=== PATIENT | female | born 1940 | race African-American/Black ===

== ENCOUNTER 2017-03-04 23:00 | Inpatient (IN) | payer MEDICARE, MEDICAID ==
[~2017-03-04] VITALS: Ht 134.6 cm; Wt 44.5 kg
[~2017-03-04 23:00] MED LIST: AMI2 PO; AMLO10TA80 PO; ASPI-1159 PO; ATOR10TA PO; CALC-4 PO; CARV12.545 PO; CLOP75TA16 PO; FURO20TA4 PO; METF500T4 PO
[2017-03-05 03:06] LABS: BASOPHILS % 1.4 % (0.0-2.0); EOSINOPHILS % 2.4 % (0.0-5.0); HEMATOCRIT. 37.7 % (36.0-48.0); HEMOGLOBIN. 12.7 g/dL (12.0-16.0); LYMPHOCYTES % 36.2 % (20.0-50.0); MEAN CORPUSCULAR HEMOGLOBIN 30.5 pg (28.0-32.0); MEAN CORPUSCULAR VOLUME 90.7 fL (81.0-99.0); MEAN PLATELET VOLUME 9.8 fl (7.4-10.4); MONOCYTES % 10.1 % (2.0-8.0); NEUTROPHILS % 49.9 % (40.0-76.0); PLATELET 265 x1000/uL (130-400); RED BLOOD CELL COUNT 4.16 mill/uL (4.2-5.4); RED CELL DISTRIBUTION WIDTH 13.7 % (11.6-14.6)
[2017-03-05 03:20] LABS: CARBON DIOXIDE 24 mEq/L (21-32); CHLORIDE 110 mEq/L (98-107); CREATINE KINASE MB FRACTION 6.4 ng/mL (0.5-3.6); TROPONIN I 0.03 ng/mL (0.00-0.04)
[2017-03-05] MEDS: PANTOPRAZOLE SODIUM 40 MG/VIAL IV SCH ×2 (03:23→21:49)
[2017-03-05 04:00] VITALS: BP 145/46
[2017-03-05] MEDS ORDERED: MAGNESIUM/ALUMINUM HYDROXIDE/SIMETHICONE 30ML UDC PO PRN (06:30)
[2017-03-05] MEDS ORDERED: MORPHINE SULFATE 2 MG/ML CPJ (NOT FOR IM USE) IV PRN (06:30)
[2017-03-05 08:10] VITALS: BP 139/51
[2017-03-05] MEDS ORDERED: DEXTROSE 50% WATER 50ML SYRINGE IV PRN (08:45)
[2017-03-05] MEDS ORDERED: AMIODARONE HCL 200 MG TABLET PO SCH (09:00)
[2017-03-05] MEDS: CARVEDILOL 6.25 MG TABLET PO SCH ×2 (09:00→21:49)
[2017-03-05] MEDS ORDERED: METFORMIN HCL 500MG TABLET PO SCH (09:00)
[2017-03-05] MEDS ORDERED: FUROSEMIDE 20MG TABLET PO SCH (09:00)
[2017-03-05] MEDS ORDERED: IPRATROPIUM/ALBUTEROL 0.5-3(2.5)MG/3ML NEB HHN PRN (09:00)
[2017-03-05] MEDS ORDERED: POTASSIUM CHLORIDE INJ 20 MEQ in SODIUM CHLORIDE 0.9% 100 ML IV NR (11:00)
[2017-03-05] MEDS ORDERED: POTASSIUM CHLORIDE 20MEQ/PACKET PO NR (11:30)
[2017-03-05] MEDS: BLOOD SUGAR DIAGNOSTIC STRIP TEST SCH ×3 (12:20→21:49)
[2017-03-05] MEDS: INSULIN LISPRO 100 UNITS/ML SUBCUT SCH ×3 (12:50→21:00)
[2017-03-05] MEDS ORDERED: SORBITOL 70% SOLN 30ML PO NR (14:00)
[2017-03-05] MEDS: ASPIRIN 81MG EC TABLET PO SCH (15:20)
[2017-03-05] MEDS: CLOPIDOGREL 75MG TABLET PO SCH (15:20)
[2017-03-05] MEDS: AMLODIPINE 10MG TABLET PO SCH (15:21)
[2017-03-05] MEDS: DEXT 5%/0.45% NACL 1000ML 1,000 ML IV SCH (15:23)
[2017-03-05 16:17] VITALS: BP 151/58
[2017-03-05] MEDS: MORPHINE SULFATE 2 MG/ML CPJ (NOT FOR IM USE) IV PRN ×2 (16:46→20:33)
[2017-03-05 18:58] LABS: CLARITY URINE CLOUDY (CLEAR); COLOR URINE YELLOW (YELLOW); GLUCOSE URINE NEGATIVE (NEGATIVE); KETONES URINE TRACE (NEGATIVE); LEUKOCYTE ESTERASE URINE 3+ (NEGATIVE); NITRITE URINE POSITIVE (NEGATIVE); OCCULT BLOOD URINE TRACE (NEGATIVE); PROTEIN URINE 2+ (NEGATIVE); SPECIFIC GRAVITY URINE 1.023 (1.005-1.030)
[2017-03-05] MEDS: DOCUSATE SODIUM 100MG CAPSULE PO SCH (19:06)
[2017-03-05 19:34] LABS: *AMPHETAMINES SCREEN URINE NEGATIVE (NEGATIVE); *BARBITURATES SCREEN URINE NEGATIVE (NEGATIVE); *BENZODIAZEPINES SCREEN URINE NEGATIVE (NEGATIVE); *COCAINE SCREEN URINE NEGATIVE (NEGATIVE); CANNABINOID URINE SCREEN NEGATIVE (NEGATIVE); METHADONE URINE SCREEN NEGATIVE (NEGATIVE); OPIATES URINE SCREEN PRESUMTIVE POSITIVE (NEGATIVE); PHENCYCLIDINE URINE SCREEN NEGATIVE (NEGATIVE)
[2017-03-05 20:00] VITALS: BP 156/54
[2017-03-06] VITALS: BP 136/44
[2017-03-06 04:00] VITALS: BP 137/57
[2017-03-06] MEDS: DEXT 5%/0.45% NACL 1000ML 1,000 ML IV SCH (04:45)
[2017-03-06] MEDS: BLOOD SUGAR DIAGNOSTIC STRIP TEST SCH ×4 (06:40→21:00)
[2017-03-06 07:34] LABS: BASOPHILS % 0.9 % (0.0-2.0); EOSINOPHILS % 5.5 % (0.0-5.0); HEMATOCRIT. 36.8 % (36.0-48.0); HEMOGLOBIN. 12.7 g/dL (12.0-16.0); LYMPHOCYTES % 44.5 % (20.0-50.0); MEAN CORPUSCULAR VOLUME 89.4 fL (81.0-99.0); MEAN PLATELET VOLUME 9.9 fl (7.4-10.4); MONOCYTES % 11.7 % (2.0-8.0); NEUTROPHILS % 37.4 % (40.0-76.0); PLATELET 254 x1000/uL (130-400); RED BLOOD CELL COUNT 4.11 mill/uL (4.2-5.4)
[2017-03-06] MEDS: INSULIN LISPRO 100 UNITS/ML SUBCUT SCH ×4 (07:50→21:00)
[2017-03-06 07:56] LABS: AMYLASE 76 IU/L (25-115); CARBON DIOXIDE 24 mEq/L (21-32); CHLORIDE 108 mEq/L (98-107)
[2017-03-06 07:58] LABS: TROPONIN I < 0.02 ng/mL (0.00-0.04)
[2017-03-06 08:32] VITALS: BP 121/70
[2017-03-06] MEDS ORDERED: LEVOFLOXACIN 500MG PREMIX 100 ML IV SCH (10:00)
[2017-03-06] MEDS: MORPHINE SULFATE 2 MG/ML CPJ (NOT FOR IM USE) IV PRN ×3 (10:24→17:13)
[2017-03-06] MEDS: CARVEDILOL 6.25 MG TABLET PO SCH ×2 (10:25→22:41)
[2017-03-06] MEDS: DOCUSATE SODIUM 100MG CAPSULE PO SCH ×2 (10:25→18:12)
[2017-03-06] MEDS: CLOPIDOGREL 75MG TABLET PO SCH (10:25)
[2017-03-06] MEDS: AMLODIPINE 10MG TABLET PO SCH (10:25)
[2017-03-06] MEDS: ASPIRIN 81MG EC TABLET PO SCH (10:25)
[2017-03-06] MEDS ORDERED: POTASSIUM CHLORIDE INJ 40 MEQ in DEXT 5% WATER 250 ML IV SCH (11:30)
[2017-03-06 12:05] VITALS: BP 147/55
[2017-03-06] MEDS ORDERED: BISACODYL 5MG TABLET PO PRN (12:45)
[2017-03-06] MEDS ORDERED: SORBITOL 70% SOLN 30ML PO NR (12:45)
[2017-03-06 16:10] VITALS: BP 140/70
[2017-03-06] MEDS ORDERED: PHENAZOPYRIDINE HCL 100MG TABLET PO SCH (19:00)
[2017-03-06] MEDS: ONDANSETRON HCL 4MG/2ML VIAL IV PRN (19:05)
[2017-03-06 20:43] VITALS: BP 147/61
[2017-03-06] MEDS: PANTOPRAZOLE SODIUM 40 MG/VIAL IV SCH (22:41)
[2017-03-07 00:25] VITALS: BP 135/46
[2017-03-07] MEDS: MORPHINE SULFATE 2 MG/ML CPJ (NOT FOR IM USE) IV PRN ×3 (00:25→18:57)
[2017-03-07] MEDS: DEXT 5%/0.45% NACL 1000ML 1,000 ML IV SCH ×2 (00:45→21:17)
[2017-03-07 04:00] VITALS: BP 138/57
[2017-03-07 05:42] LABS: HEMATOCRIT. 38.4 % (36.0-48.0); HEMOGLOBIN. 12.9 g/dL (12.0-16.0); MEAN CORPUSCULAR HEMOGLOBIN 30.5 pg (28.0-32.0); MEAN CORPUSCULAR VOLUME 90.5 fL (81.0-99.0); MEAN PLATELET VOLUME 10.1 fl (7.4-10.4); PLATELET 262 x1000/uL (130-400); RED BLOOD CELL COUNT 4.24 mill/uL (4.2-5.4); RED CELL DISTRIBUTION WIDTH 13.8 % (11.6-14.6)
[2017-03-07] MEDS: ONDANSETRON HCL 4MG/2ML VIAL IV PRN ×3 (05:43→17:50)
[2017-03-07] MEDS: BLOOD SUGAR DIAGNOSTIC STRIP TEST SCH ×4 (06:27→21:00)
[2017-03-07 06:39] LABS: CARBON DIOXIDE 24 mEq/L (21-32); CHLORIDE 106 mEq/L (98-107)
[2017-03-07 07:42] VITALS: BP 119/51
[2017-03-07] MEDS: INSULIN LISPRO 100 UNITS/ML SUBCUT SCH ×4 (07:50→21:00)
[2017-03-07] MEDS ORDERED: NA PHOS,M-B/NA PHOS,DI-BA ENEMA 118ML PR NR (08:15)
[2017-03-07] MEDS ORDERED: NA PHOS,M-B/NA PHOS,DI-BA ENEMA 118ML PR PRN (08:15)
[2017-03-07] MEDS: LEVOFLOXACIN 250MG PREMIX 50 ML IV SCH (10:16)
[2017-03-07] MEDS: PHENAZOPYRIDINE HCL 100MG TABLET PO SCH ×3 (10:17→19:01)
[2017-03-07] MEDS: CLOPIDOGREL 75MG TABLET PO SCH (10:18)
[2017-03-07] MEDS: DOCUSATE SODIUM 100MG CAPSULE PO SCH ×2 (10:19→19:01)
[2017-03-07] MEDS: AMLODIPINE 10MG TABLET PO SCH (10:19)
[2017-03-07] MEDS: ASPIRIN 81MG EC TABLET PO SCH (10:19)
[2017-03-07] MEDS: CARVEDILOL 6.25 MG TABLET PO SCH ×2 (10:19→21:17)
[2017-03-07 11:58] VITALS: BP 117/35
[2017-03-07 12:43] LABS: PLATELET ESTIMATE NORMAL
[2017-03-07] MEDS ORDERED: DIATR MEGLU/DIATRIZOATE SOLN 120ML ONE (14:01)
[2017-03-07 16:00] VITALS: BP 126/41
[2017-03-07 20:22] VITALS: BP 124/50
[2017-03-07] MEDS: PANTOPRAZOLE SODIUM 40 MG/VIAL IV SCH (21:17)
[2017-03-08 05:00] VITALS: BP 129/48
[2017-03-08 06:29] LABS: HEMATOCRIT. 39.1 % (36.0-48.0); HEMOGLOBIN. 13.4 g/dL (12.0-16.0); MEAN CORPUSCULAR HEMOGLOBIN 30.8 pg (28.0-32.0); MEAN CORPUSCULAR VOLUME 89.7 fL (81.0-99.0); MEAN PLATELET VOLUME 9.8 fl (7.4-10.4); PLATELET 273 x1000/uL (130-400); RED BLOOD CELL COUNT 4.36 mill/uL (4.2-5.4); RED CELL DISTRIBUTION WIDTH 13.9 % (11.6-14.6)
[2017-03-08] MEDS: BLOOD SUGAR DIAGNOSTIC STRIP TEST SCH ×4 (06:46→21:00)
[2017-03-08] MEDS: INSULIN LISPRO 100 UNITS/ML SUBCUT SCH ×4 (07:47→21:00)
[2017-03-08 07:48] VITALS: BP 127/53
[2017-03-08] MEDS: LEVOFLOXACIN 250MG PREMIX 50 ML IV SCH (08:56)
[2017-03-08] MEDS: DEXT 5%/0.45% NACL 1000ML 1,000 ML IV SCH (08:56)
[2017-03-08] MEDS: ONDANSETRON HCL 4MG/2ML VIAL IV PRN (08:57)
[2017-03-08] MEDS: MORPHINE SULFATE 2 MG/ML CPJ (NOT FOR IM USE) IV PRN ×3 (08:58→17:06)
[2017-03-08] MEDS: CARVEDILOL 6.25 MG TABLET PO SCH ×2 (08:58→21:38)
[2017-03-08] MEDS: ASPIRIN 81MG EC TABLET PO SCH (08:59)
[2017-03-08] MEDS: AMLODIPINE 10MG TABLET PO SCH (08:59)
[2017-03-08] MEDS: DOCUSATE SODIUM 100MG CAPSULE PO SCH ×2 (08:59→17:05)
[2017-03-08] MEDS: CLOPIDOGREL 75MG TABLET PO SCH (08:59)
[2017-03-08 11:57] VITALS: BP 135/52
[2017-03-08] MEDS ORDERED: PHENAZOPYRIDINE HCL 100MG TABLET PO NR (13:45)
[2017-03-08 14:07] LABS: PLATELET ESTIMATE NORMAL
[2017-03-08 16:00] VITALS: BP 127/35
[2017-03-08 20:00] VITALS: BP 139/51
[2017-03-08] MEDS: ZOLPIDEM TARTRATE 5MG TABLET PO PRN (21:38)
[2017-03-08] MEDS: PANTOPRAZOLE SODIUM 40 MG/VIAL IV SCH (21:38)
[2017-03-08] MEDS: ENOXAPARIN 30MG/0.3ML SYR SUBCUT SCH (21:40)
[2017-03-09] VITALS: BP 130/52
[2017-03-09 04:00] VITALS: BP 133/69
[2017-03-09] MEDS: INSULIN LISPRO 100 UNITS/ML SUBCUT SCH ×4 (06:56→21:00)
[2017-03-09] MEDS: BLOOD SUGAR DIAGNOSTIC STRIP TEST SCH ×4 (07:20→21:00)
[2017-03-09 07:41] LABS: HEMATOCRIT. 38.3 % (36.0-48.0); MEAN CORPUSCULAR HEMOGLOBIN 30.6 pg (28.0-32.0); MEAN CORPUSCULAR VOLUME 90.3 fL (81.0-99.0); MEAN PLATELET VOLUME 9.6 fl (7.4-10.4); PLATELET 263 x1000/uL (130-400); RED BLOOD CELL COUNT 4.25 mill/uL (4.2-5.4); RED CELL DISTRIBUTION WIDTH 14.1 % (11.6-14.6)
[2017-03-09 07:42] VITALS: BP_SYST 119; BP_SYST 120; BP_DIAS 47; BP_DIAS 48
[2017-03-09 08:15] LABS: CARBON DIOXIDE 26 mEq/L (21-32); CHLORIDE 106 mEq/L (98-107)
[2017-03-09] MEDS: CARVEDILOL 6.25 MG TABLET PO SCH ×2 (08:42→21:02)
[2017-03-09] MEDS: DOCUSATE SODIUM 100MG CAPSULE PO SCH ×2 (08:42→17:00)
[2017-03-09] MEDS: ASPIRIN 81MG EC TABLET PO SCH (08:42)
[2017-03-09] MEDS: CLOPIDOGREL 75MG TABLET PO SCH (08:42)
[2017-03-09] MEDS: AMLODIPINE 10MG TABLET PO SCH (08:42)
[2017-03-09] MEDS: LEVOFLOXACIN 250MG PREMIX 50 ML IV SCH (10:21)
[2017-03-09 10:59] LABS: PLATELET ESTIMATE NORMAL
[2017-03-09 12:04] VITALS: BP 114/45
[2017-03-09 16:00] VITALS: BP 126/48
[2017-03-09] MEDS ORDERED: KCL 20MEQ/100ML PREMIX 100 ML IV ONE (16:45)
[2017-03-09] MEDS: DEXT 5%/0.45% NACL 1000ML 1,000 ML IV SCH (18:08)
[2017-03-09] MEDS ORDERED: POTASSIUM CHLORIDE INJ 20 MEQ in DEXT 5% WATER 100 ML IV NR (18:30)
[2017-03-09 20:00] VITALS: BP 117/46
[2017-03-09] MEDS: PANTOPRAZOLE SODIUM 40 MG/VIAL IV SCH (21:01)
[2017-03-09] MEDS: ENOXAPARIN 30MG/0.3ML SYR SUBCUT SCH (21:01)
[2017-03-09] MEDS: ZOLPIDEM TARTRATE 5MG TABLET PO PRN (21:02)
[2017-03-09] MEDS: ONDANSETRON HCL 4MG/2ML VIAL IV PRN (22:03)
[2017-03-10] VITALS (7 sets, daily range): BP systolic 91–148; BP diastolic 28–49
[2017-03-10] MEDS: INSULIN LISPRO 100 UNITS/ML SUBCUT SCH ×4 (06:45→21:00)
[2017-03-10] MEDS: BLOOD SUGAR DIAGNOSTIC STRIP TEST SCH ×4 (06:50→21:00)
[2017-03-10] MEDS: DOCUSATE SODIUM 100MG CAPSULE PO SCH ×2 (09:00→17:00)
[2017-03-10] MEDS: LEVOFLOXACIN 250MG PREMIX 50 ML IV SCH (09:56)
[2017-03-10] MEDS: ASPIRIN 81MG EC TABLET PO SCH (09:56)
[2017-03-10] MEDS: AMLODIPINE 10MG TABLET PO SCH (09:56)
[2017-03-10] MEDS: CLOPIDOGREL 75MG TABLET PO SCH (09:56)
[2017-03-10] MEDS: CARVEDILOL 6.25 MG TABLET PO SCH ×2 (09:56→21:22)
[2017-03-10] MEDS: DEXT 5%/0.45% NACL 1000ML 1,000 ML IV SCH (10:05)
[2017-03-10] MEDS: ZOLPIDEM TARTRATE 5MG TABLET PO PRN (21:22)
[2017-03-10] MEDS: PANTOPRAZOLE SODIUM 40 MG/VIAL IV SCH (21:22)
[2017-03-10] MEDS: ENOXAPARIN 30MG/0.3ML SYR SUBCUT SCH (21:22)
[2017-03-10] MEDS: ONDANSETRON HCL 4MG/2ML VIAL IV PRN (21:22)
[2017-03-11] VITALS: BP 106/47
[2017-03-11 04:00] VITALS: BP 138/49
[2017-03-11] MEDS: DEXT 5%/0.45% NACL 1000ML 1,000 ML IV SCH (04:45)
[2017-03-11 06:19] LABS: BASOPHILS % 0.5 % (0.0-2.0); EOSINOPHILS % 4.3 % (0.0-5.0); HEMATOCRIT. 36.2 % (36.0-48.0); HEMOGLOBIN. 12.2 g/dL (12.0-16.0); LYMPHOCYTES % 37.2 % (20.0-50.0); MEAN CORPUSCULAR HEMOGLOBIN 30.3 pg (28.0-32.0); MEAN CORPUSCULAR VOLUME 90.2 fL (81.0-99.0); MEAN PLATELET VOLUME 9.1 fl (7.4-10.4); MONOCYTES % 14.9 % (2.0-8.0); NEUTROPHILS % 43.1 % (40.0-76.0); PLATELET 290 x1000/uL (130-400); RED BLOOD CELL COUNT 4.01 mill/uL (4.2-5.4); RED CELL DISTRIBUTION WIDTH 13.6 % (11.6-14.6)
[2017-03-11] MEDS: BLOOD SUGAR DIAGNOSTIC STRIP TEST SCH ×4 (07:04→21:54)
[2017-03-11 07:07] LABS: CARBON DIOXIDE 22 mEq/L (21-32); CHLORIDE 110 mEq/L (98-107)
[2017-03-11] MEDS: INSULIN LISPRO 100 UNITS/ML SUBCUT SCH ×4 (07:50→21:00)
[2017-03-11] MEDS: ASPIRIN 81MG EC TABLET PO SCH (08:56)
[2017-03-11] MEDS: CLOPIDOGREL 75MG TABLET PO SCH (08:57)
[2017-03-11] MEDS: CARVEDILOL 6.25 MG TABLET PO SCH ×2 (08:57→22:01)
[2017-03-11] MEDS: AMLODIPINE 10MG TABLET PO SCH (08:57)
[2017-03-11] MEDS: DOCUSATE SODIUM 100MG CAPSULE PO SCH ×2 (08:58→17:00)
[2017-03-11] MEDS: LEVOFLOXACIN 250MG PREMIX 50 ML IV SCH (08:58)
[2017-03-11 12:16] VITALS: BP 141/55
[2017-03-11] MEDS: MORPHINE SULFATE 2 MG/ML CPJ (NOT FOR IM USE) IV PRN (15:43)
[2017-03-11 16:36] VITALS: BP 109/40
[2017-03-11 20:00] VITALS: BP 117/57
[2017-03-11] MEDS: PANTOPRAZOLE SODIUM 40 MG/VIAL IV SCH (22:01)
[2017-03-11] MEDS: ENOXAPARIN 30MG/0.3ML SYR SUBCUT SCH (22:02)
[2017-03-12] VITALS: BP 123/41
[2017-03-12] MEDS: MORPHINE SULFATE 2 MG/ML CPJ (NOT FOR IM USE) IV PRN (00:59)
[2017-03-12] MEDS: DEXT 5%/0.45% NACL 1000ML 1,000 ML IV SCH (01:04)
[2017-03-12 04:00] VITALS: BP 114/46
[2017-03-12] MEDS: BLOOD SUGAR DIAGNOSTIC STRIP TEST SCH ×4 (06:27→21:00)
[2017-03-12] MEDS: INSULIN LISPRO 100 UNITS/ML SUBCUT SCH ×4 (07:50→21:00)
[2017-03-12] MEDS: ONDANSETRON HCL 4MG/2ML VIAL IV PRN (09:24)
[2017-03-12] MEDS: LEVOFLOXACIN 250MG PREMIX 50 ML IV SCH (11:01)
[2017-03-12] MEDS: CLOPIDOGREL 75MG TABLET PO SCH (11:01)
[2017-03-12] MEDS: CARVEDILOL 6.25 MG TABLET PO SCH ×2 (11:02→22:42)
[2017-03-12] MEDS: ASPIRIN 81MG EC TABLET PO SCH (11:03)
[2017-03-12] MEDS: AMLODIPINE 10MG TABLET PO SCH (11:03)
[2017-03-12] MEDS: DOCUSATE SODIUM 100MG CAPSULE PO SCH ×2 (11:03→16:55)
[2017-03-12 11:28] VITALS: BP 127/51
[2017-03-12 12:12] LABS: CARBON DIOXIDE 22 mEq/L (21-32); CHLORIDE 109 mEq/L (98-107)
[2017-03-12 13:12] VITALS: BP 116/47
[2017-03-12] MEDS ORDERED: POTASSIUM CHLORIDE 20MEQ TABLET SR PO NR (14:15)
[2017-03-12 16:17] VITALS: BP 134/49
[2017-03-12 20:00] VITALS: BP 141/45
[2017-03-12] MEDS: PANTOPRAZOLE SODIUM 40 MG/VIAL IV SCH (22:41)
[2017-03-12] MEDS: ENOXAPARIN 30MG/0.3ML SYR SUBCUT SCH (22:41)
[2017-03-13] VITALS: BP 128/50
[2017-03-13 04:00] VITALS: BP 128/57
[2017-03-13] MEDS: DEXT 5%/0.45% NACL 1000ML 1,000 ML IV SCH (05:18)
[2017-03-13] MEDS: BLOOD SUGAR DIAGNOSTIC STRIP TEST SCH ×4 (06:34→20:18)
[2017-03-13 07:11] LABS: BASOPHILS % 0.6 % (0.0-2.0); EOSINOPHILS % 5.1 % (0.0-5.0); HEMATOCRIT. 32.7 % (36.0-48.0); HEMOGLOBIN. 11.2 g/dL (12.0-16.0); LYMPHOCYTES % 47.7 % (20.0-50.0); MEAN CORPUSCULAR HEMOGLOBIN 30.8 pg (28.0-32.0); MEAN CORPUSCULAR VOLUME 89.5 fL (81.0-99.0); MEAN PLATELET VOLUME 8.9 fl (7.4-10.4); MONOCYTES % 12.4 % (2.0-8.0); NEUTROPHILS % 34.2 % (40.0-76.0); PLATELET 308 x1000/uL (130-400); RED BLOOD CELL COUNT 3.66 mill/uL (4.2-5.4); RED CELL DISTRIBUTION WIDTH 13.5 % (11.6-14.6)
[2017-03-13 07:18] LABS: CARBON DIOXIDE 23 mEq/L (21-32); CHLORIDE 111 mEq/L (98-107)
[2017-03-13] MEDS: INSULIN LISPRO 100 UNITS/ML SUBCUT SCH ×4 (07:50→20:25)
[2017-03-13] MEDS: AMLODIPINE 10MG TABLET PO SCH (09:00)
[2017-03-13] MEDS: CARVEDILOL 6.25 MG TABLET PO SCH ×2 (09:00→20:18)
[2017-03-13] MEDS ORDERED: POTASSIUM CHLORIDE 20MEQ TABLET SR PO NR (09:00)
[2017-03-13] MEDS: DOCUSATE SODIUM 100MG CAPSULE PO SCH (09:15)
[2017-03-13] MEDS: CLOPIDOGREL 75MG TABLET PO SCH (09:15)
[2017-03-13] MEDS: ASPIRIN 81MG EC TABLET PO SCH (09:15)
[2017-03-13] MEDS: LEVOFLOXACIN 250MG PREMIX 50 ML IV SCH (11:39)
[2017-03-13 16:20] VITALS: BP 128/43
[2017-03-13] MEDS: PANTOPRAZOLE SODIUM 40 MG/VIAL IV SCH (20:17)
[2017-03-13] MEDS: ENOXAPARIN 30MG/0.3ML SYR SUBCUT SCH (20:18)
[2017-03-13 20:49] VITALS: BP 129/68
[2017-03-14] MEDS ORDERED: DOCUSATE SODIUM 100MG CAPSULE PO SCH (09:00)
== END 2017-03-13 21:33 | DRG 871 ==
LOC: ER 23:06 → 6WST 23:43 → ENRESERV 03-05 02:54 → 6WST 03-07 18:21 → 6EST 03-12 23:39
PROVIDERS: ADMIT Internal Medicine Critical Care Medicine; ATTEND Internal Medicine Critical Care Medicine
DX: A41.51 Sepsis due to Escherichia coli [E. coli] (principal); J15.0 Pneumonia due to Klebsiella pneumoniae; K56.600 Partial intestinal obstruction, unspecified as to cause; N13.30 Unspecified hydronephrosis; E11.51 Type 2 diabetes mellitus with diabetic peripheral angiopathy without gangrene; E11.65 Type 2 diabetes mellitus with hyperglycemia; K56.7 Ileus, unspecified; D64.9 Anemia, unspecified; N39.0 Urinary tract infection, site not specified; K57.90 Diverticulosis of intestine, part unspecified, without perforation or abscess without bleeding; F03.90 Unspecified dementia, unspecified severity, without behavioral disturbance, psychotic disturbance, mood disturbance, and anxiety; K21.9 Gastro-esophageal reflux disease without esophagitis; E87.6 Hypokalemia; I35.0 Nonrheumatic aortic (valve) stenosis; J45.909 Unspecified asthma, uncomplicated; K58.9 Irritable bowel syndrome, unspecified; B96.1 Klebsiella pneumoniae [K. pneumoniae] as the cause of diseases classified elsewhere; E78.5 Hyperlipidemia, unspecified; I11.9 Hypertensive heart disease without heart failure; I25.10 Atherosclerotic heart disease of native coronary artery without angina pectoris; N28.1 Cyst of kidney, acquired; I35.2 Nonrheumatic aortic (valve) stenosis with insufficiency; I44.0 Atrioventricular block, first degree; I25.2 Old myocardial infarction; Z79.84 Long term (current) use of oral hypoglycemic drugs; Z82.49 Family history of ischemic heart disease and other diseases of the circulatory system; Z87.440 Personal history of urinary (tract) infections; Z87.891 Personal history of nicotine dependence; Z90.710 Acquired absence of both cervix and uterus; Z95.5 Presence of coronary angioplasty implant and graft
CPT/HCPCS: 36415; 71010; 74000; 74176; 74250; 76770; 76856; 80048; 80053; 80076; 80305; 81001; 82150; 82553; 82962; 83605; 83690; 84132; 84484; 85025; 87077; 87086; 87186; 93005; 93306; 93970; 96374; 97162; 97166; 99285; A6261; C1893; C9113; J1650; J1956; J2270; J2405; J3480; J3490; J7050; J7060; J7620; Q9963

== ENCOUNTER 2017-03-13 21:35 | Inpatient (IN) | payer MEDICARE, MEDICAID ==
[~2017-03-13] VITALS: Ht 134.6 cm; Wt 44.5 kg
[2017-03-13 20:00] VITALS: BP 121/77
[2017-03-13 21:35] VITALS: BP 121/77
[2017-03-13] MEDS ORDERED: ACETAMINOPHEN 325MG TABLET PO PRN (22:15)
[2017-03-13] MEDS ORDERED: ZOLPIDEM TARTRATE 5MG TABLET PO PRN (22:15)
[2017-03-13] MEDS ORDERED: MORPHINE SULFATE 2 MG/ML CPJ (NOT FOR IM USE) IV PRN (22:15)
[2017-03-13] MEDS ORDERED: BISACODYL 5MG TABLET PO PRN (22:15)
[2017-03-13] MEDS ORDERED: NA PHOS,M-B/NA PHOS,DI-BA ENEMA 118ML PR PRN (22:15)
[2017-03-13] MEDS ORDERED: ONDANSETRON HCL 4MG/2ML VIAL IV PRN (22:15)
[2017-03-13] MEDS ORDERED: IPRATROPIUM/ALBUTEROL 0.5-3(2.5)MG/3ML NEB INH PRN (22:15)
[2017-03-13] MEDS ORDERED: HYDROCODONE/ACETAMINOPHEN 5/325MG TABLET PO PRN (22:15)
[2017-03-14 06:17] LABS: BASOPHILS % 1.1 % (0.0-2.0); EOSINOPHILS % 5.6 % (0.0-5.0); LYMPHOCYTES % 46.9 % (20.0-50.0); MEAN CORPUSCULAR HEMOGLOBIN 31.7 pg (28.0-32.0); MEAN CORPUSCULAR VOLUME 89.7 fL (81.0-99.0); MEAN PLATELET VOLUME 8.4 fl (7.4-10.4); MONOCYTES % 12.9 % (2.0-8.0); NEUTROPHILS % 33.5 % (40.0-76.0); PLATELET 303 x1000/uL (130-400); RED BLOOD CELL COUNT 3.46 mill/uL (4.2-5.4); RED CELL DISTRIBUTION WIDTH 13.8 % (11.6-14.6)
[2017-03-14] MEDS: BLOOD SUGAR DIAGNOSTIC STRIP TEST SCH ×4 (06:30→21:00)
[2017-03-14 06:54] LABS: CHLORIDE 110 mEq/L (98-107)
[2017-03-14 07:21] LABS: CARBON DIOXIDE 20 mEq/L (21-32)
[2017-03-14 08:00] VITALS: BP 117/47
[2017-03-14] MEDS: INSULIN LISPRO 100 UNITS/ML SUBCUT SCH ×4 (09:00→21:00)
[2017-03-14] MEDS: AMLODIPINE 10MG TABLET PO SCH (09:00)
[2017-03-14] MEDS: CARVEDILOL 6.25 MG TABLET PO SCH ×3 (09:00→21:00)
[2017-03-14] MEDS: DOCUSATE SODIUM 100MG CAPSULE PO SCH ×2 (09:00→09:05)
[2017-03-14] MEDS: CLOPIDOGREL 75MG TABLET PO SCH (09:05)
[2017-03-14] MEDS: ASPIRIN 81MG TABLET PO SCH (09:05)
[2017-03-14] MEDS: ENOXAPARIN 30MG/0.3ML SYR SUBCUT SCH (09:09)
[2017-03-14] MEDS: LEVOFLOXACIN 500MG TABLET PO SCH (12:23)
[2017-03-14 20:35] VITALS: BP 122/50
[2017-03-15] MEDS: BLOOD SUGAR DIAGNOSTIC STRIP TEST SCH ×4 (06:30→20:42)
[2017-03-15] MEDS: INSULIN LISPRO 100 UNITS/ML SUBCUT SCH ×4 (06:42→20:42)
[2017-03-15 08:00] VITALS: BP 117/55
[2017-03-15] MEDS: CLOPIDOGREL 75MG TABLET PO SCH (09:15)
[2017-03-15] MEDS: DOCUSATE SODIUM 100MG CAPSULE PO SCH (09:15)
[2017-03-15] MEDS: ASPIRIN 81MG TABLET PO SCH (09:15)
[2017-03-15] MEDS: AMLODIPINE 10MG TABLET PO SCH (09:16)
[2017-03-15] MEDS: CARVEDILOL 6.25 MG TABLET PO SCH ×2 (09:16→20:38)
[2017-03-15] MEDS: ENOXAPARIN 30MG/0.3ML SYR SUBCUT SCH (09:16)
[2017-03-15] MEDS: LEVOFLOXACIN 500MG TABLET PO SCH (11:52)
[2017-03-15 20:00] VITALS: BP 124/48
[2017-03-16] MEDS: BLOOD SUGAR DIAGNOSTIC STRIP TEST SCH ×4 (06:39→20:28)
[2017-03-16] MEDS: INSULIN LISPRO 100 UNITS/ML SUBCUT SCH ×4 (07:07→20:29)
[2017-03-16 08:00] VITALS: BP 121/69
[2017-03-16] MEDS: ENOXAPARIN 30MG/0.3ML SYR SUBCUT SCH (08:58)
[2017-03-16] MEDS: DOCUSATE SODIUM 100MG CAPSULE PO SCH (08:59)
[2017-03-16] MEDS: AMLODIPINE 10MG TABLET PO SCH (08:59)
[2017-03-16] MEDS: CLOPIDOGREL 75MG TABLET PO SCH (08:59)
[2017-03-16] MEDS: ASPIRIN 81MG TABLET PO SCH (08:59)
[2017-03-16] MEDS: CARVEDILOL 6.25 MG TABLET PO SCH ×2 (09:00→20:24)
[2017-03-16] MEDS: LEVOFLOXACIN 500MG TABLET PO SCH (12:34)
[2017-03-16 20:00] VITALS: BP 138/49
[2017-03-17] MEDS: BLOOD SUGAR DIAGNOSTIC STRIP TEST SCH ×4 (06:23→21:42)
[2017-03-17] MEDS: INSULIN LISPRO 100 UNITS/ML SUBCUT SCH ×4 (07:05→21:00)
[2017-03-17 08:00] VITALS: BP 124/41
[2017-03-17] MEDS: DOCUSATE SODIUM 100MG CAPSULE PO SCH (08:15)
[2017-03-17] MEDS: ASPIRIN 81MG TABLET PO SCH (08:17)
[2017-03-17] MEDS: CLOPIDOGREL 75MG TABLET PO SCH (08:17)
[2017-03-17] MEDS: ENOXAPARIN 30MG/0.3ML SYR SUBCUT SCH (08:18)
[2017-03-17] MEDS: CARVEDILOL 6.25 MG TABLET PO SCH ×2 (09:00→21:52)
[2017-03-17] MEDS: AMLODIPINE 10MG TABLET PO SCH (09:00)
[2017-03-17 09:10] VITALS: BP 123/47
[2017-03-17] MEDS: LEVOFLOXACIN 500MG TABLET PO SCH (11:39)
[2017-03-17] MEDS ORDERED: HYDROCODONE/ACETAMINOPHEN 5/325MG TABLET PO PRN (17:45)
[2017-03-17] MEDS ORDERED: ZOLPIDEM TARTRATE 5MG TABLET PO PRN (17:45)
[2017-03-17 20:00] VITALS: BP 130/58
[2017-03-18] MEDS: INSULIN LISPRO 100 UNITS/ML SUBCUT SCH ×4 (06:06→21:00)
[2017-03-18] MEDS: BLOOD SUGAR DIAGNOSTIC STRIP TEST SCH ×4 (06:06→21:04)
[2017-03-18 07:00] VITALS: BP 141/48
[2017-03-18 08:00] VITALS: BP 141/48
[2017-03-18] MEDS: CLOPIDOGREL 75MG TABLET PO SCH (08:42)
[2017-03-18] MEDS: ASPIRIN 81MG TABLET PO SCH (08:42)
[2017-03-18] MEDS: DOCUSATE SODIUM 100MG CAPSULE PO SCH ×2 (08:42→08:52)
[2017-03-18] MEDS: ENOXAPARIN 30MG/0.3ML SYR SUBCUT SCH (08:43)
[2017-03-18] MEDS: CARVEDILOL 6.25 MG TABLET PO SCH ×2 (09:00→21:00)
[2017-03-18] MEDS: AMLODIPINE 10MG TABLET PO SCH (09:00)
[2017-03-18 10:45] VITALS: BP 107/44
[2017-03-18] MEDS: LEVOFLOXACIN 500MG TABLET PO SCH (11:35)
[2017-03-18 20:00] VITALS: BP 122/66
[2017-03-19] MEDS: BLOOD SUGAR DIAGNOSTIC STRIP TEST SCH ×4 (06:17→21:55)
[2017-03-19] MEDS: INSULIN LISPRO 100 UNITS/ML SUBCUT SCH ×4 (06:18→21:00)
[2017-03-19 07:05] LABS: BASOPHILS % 0.9 % (0.0-2.0); EOSINOPHILS % 5.5 % (0.0-5.0); HEMATOCRIT. 31.4 % (36.0-48.0); HEMOGLOBIN. 11.1 g/dL (12.0-16.0); LYMPHOCYTES % 42.9 % (20.0-50.0); MEAN CORPUSCULAR VOLUME 90.8 fL (81.0-99.0); MEAN PLATELET VOLUME 7.9 fl (7.4-10.4); MONOCYTES % 10.8 % (2.0-8.0); NEUTROPHILS % 39.9 % (40.0-76.0); PLATELET 354 x1000/uL (130-400); RED BLOOD CELL COUNT 3.46 mill/uL (4.2-5.4); RED CELL DISTRIBUTION WIDTH 14.1 % (11.6-14.6)
[2017-03-19 07:10] LABS: CARBON DIOXIDE 29 mEq/L (21-32); CHLORIDE 109 mEq/L (98-107)
[2017-03-19 08:00] VITALS: BP 132/52
[2017-03-19 08:15] VITALS: BP 113/63
[2017-03-19] MEDS: AMLODIPINE 10MG TABLET PO SCH (09:00)
[2017-03-19] MEDS: CARVEDILOL 6.25 MG TABLET PO SCH ×2 (09:00→21:55)
[2017-03-19] MEDS: CLOPIDOGREL 75MG TABLET PO SCH (09:09)
[2017-03-19] MEDS: ENOXAPARIN 30MG/0.3ML SYR SUBCUT SCH (09:09)
[2017-03-19] MEDS: DOCUSATE SODIUM 100MG CAPSULE PO SCH (09:09)
[2017-03-19] MEDS: ASPIRIN 81MG TABLET PO SCH (09:09)
[2017-03-19 10:00] VITALS: BP 103/48
[2017-03-19 13:00] VITALS: BP_SYST 118; BP_SYST 132; BP_SYST 170; BP_DIAS 48; BP_DIAS 50
[2017-03-19 14:00] VITALS: BP 152/51
[2017-03-19] MEDS: SODIUM CHLORIDE 0.45% 1,000 ML IV SCH (18:16)
[2017-03-19 20:00] VITALS: BP 131/48
[2017-03-20] MEDS: SODIUM CHLORIDE 0.45% 1,000 ML IV SCH ×2 (04:31→18:12)
[2017-03-20] MEDS: BLOOD SUGAR DIAGNOSTIC STRIP TEST SCH ×4 (05:50→21:28)
[2017-03-20] MEDS: INSULIN LISPRO 100 UNITS/ML SUBCUT SCH ×4 (06:13→21:00)
[2017-03-20 08:00] VITALS: BP_SYST 145; BP_DIAS 50; BP_DIAS 65
[2017-03-20] MEDS: AMLODIPINE 10MG TABLET PO SCH (09:16)
[2017-03-20] MEDS: ASPIRIN 81MG TABLET PO SCH (09:16)
[2017-03-20] MEDS: ENOXAPARIN 30MG/0.3ML SYR SUBCUT SCH (09:16)
[2017-03-20] MEDS: CLOPIDOGREL 75MG TABLET PO SCH (09:17)
[2017-03-20] MEDS: DOCUSATE SODIUM 100MG CAPSULE PO SCH (09:17)
[2017-03-20] MEDS: CARVEDILOL 6.25 MG TABLET PO SCH ×2 (09:17→21:27)
[2017-03-20 10:00] VITALS: BP 115/72
[2017-03-20 14:00] VITALS: BP_SYST 117; BP_SYST 133; BP_DIAS 68; BP_DIAS 81
[2017-03-20 20:00] VITALS: BP 122/46
[2017-03-21] MEDS: BLOOD SUGAR DIAGNOSTIC STRIP TEST SCH ×4 (05:50→20:46)
[2017-03-21] MEDS: DEXTROSE 50% WATER 50ML SYRINGE IV PRN (06:05)
[2017-03-21] MEDS: SODIUM CHLORIDE 0.45% 1,000 ML IV SCH ×2 (06:28→20:45)
[2017-03-21 08:00] VITALS: BP 134/50
[2017-03-21] MEDS: CARVEDILOL 6.25 MG TABLET PO SCH (08:16)
[2017-03-21] MEDS: INSULIN LISPRO 100 UNITS/ML SUBCUT SCH ×4 (08:16→20:46)
[2017-03-21] MEDS: ASPIRIN 81MG TABLET PO SCH (08:27)
[2017-03-21] MEDS: CLOPIDOGREL 75MG TABLET PO SCH (08:27)
[2017-03-21] MEDS: AMLODIPINE 10MG TABLET PO SCH (08:27)
[2017-03-21] MEDS: ENOXAPARIN 30MG/0.3ML SYR SUBCUT SCH (08:27)
[2017-03-21] MEDS: DOCUSATE SODIUM 100MG CAPSULE PO SCH (08:27)
[2017-03-21 14:30] VITALS: BP_SYST 137; BP_SYST 143; BP_SYST 99; BP_DIAS 45; BP_DIAS 47; BP_DIAS 55
[2017-03-21] MEDS ORDERED: SODIUM CHLORIDE 0.9% 500 ML IV NR (14:45)
[2017-03-21 20:00] VITALS: BP 122/48
[2017-03-21 21:00] VITALS: BP_SYST 146; BP_SYST 153; BP_SYST 159; BP_DIAS 50; BP_DIAS 52; BP_DIAS 56
[2017-03-22] MEDS: BLOOD SUGAR DIAGNOSTIC STRIP TEST SCH ×4 (05:28→20:46)
[2017-03-22] MEDS: INSULIN LISPRO 100 UNITS/ML SUBCUT SCH ×4 (05:28→20:46)
[2017-03-22] MEDS: DEXTROSE 50% WATER 50ML SYRINGE IV PRN (05:40)
[2017-03-22 08:00] VITALS: BP 124/50
[2017-03-22] MEDS: CLOPIDOGREL 75MG TABLET PO SCH (09:51)
[2017-03-22] MEDS: DOCUSATE SODIUM 100MG CAPSULE PO SCH (09:51)
[2017-03-22] MEDS: SODIUM CHLORIDE 0.45% 1,000 ML IV SCH (09:51)
[2017-03-22] MEDS: ASPIRIN 81MG TABLET PO SCH (09:51)
[2017-03-22] MEDS: ENOXAPARIN 30MG/0.3ML SYR SUBCUT SCH (09:51)
[2017-03-22 12:00] VITALS: BP 120/50
[2017-03-22 13:00] VITALS: BP 124/45
[2017-03-22 16:42] VITALS: BP 124/50
[2017-03-22 20:00] VITALS: BP 141/54
[2017-03-22 20:45] VITALS: BP 133/50
[2017-03-22] MEDS: AMLODIPINE 2.5MG TABLET PO SCH (20:45)
[2017-03-23] MEDS: BLOOD SUGAR DIAGNOSTIC STRIP TEST SCH ×4 (06:01→21:53)
[2017-03-23] MEDS: INSULIN LISPRO 100 UNITS/ML SUBCUT SCH ×4 (06:02→21:00)
[2017-03-23 06:45] VITALS: BP_SYST 127; BP_SYST 133; BP_SYST 140; BP_DIAS 44; BP_DIAS 50; BP_DIAS 53
[2017-03-23 08:00] VITALS: BP 151/48
[2017-03-23] MEDS: ASPIRIN 81MG TABLET PO SCH (08:39)
[2017-03-23] MEDS: CLOPIDOGREL 75MG TABLET PO SCH (08:39)
[2017-03-23] MEDS: AMLODIPINE 2.5MG TABLET PO SCH ×2 (08:39→21:52)
[2017-03-23] MEDS: DOCUSATE SODIUM 100MG CAPSULE PO SCH (08:39)
[2017-03-23] MEDS: ENOXAPARIN 30MG/0.3ML SYR SUBCUT SCH (08:39)
[2017-03-23 17:15] VITALS: BP_SYST 129; BP_SYST 138; BP_SYST 143; BP_DIAS 50; BP_DIAS 55; BP_DIAS 58
[2017-03-23 20:11] VITALS: BP 143/54
[2017-03-23 21:00] VITALS: BP 129/60
[2017-03-23 21:08] LABS: CLARITY URINE CLOUDY (CLEAR); COLOR URINE YELLOW (YELLOW); KETONES URINE NEGATIVE (NEGATIVE); LEUKOCYTE ESTERASE URINE 2+ (NEGATIVE); NITRITE URINE POSITIVE (NEGATIVE); OCCULT BLOOD URINE NEGATIVE (NEGATIVE); PH URINE 7.5 (4.5-8.0); PROTEIN URINE NEGATIVE (NEGATIVE); SPECIFIC GRAVITY URINE 1.017 (1.005-1.030)
[2017-03-24] MEDS: BLOOD SUGAR DIAGNOSTIC STRIP TEST SCH ×4 (06:57→21:00)
[2017-03-24] MEDS: INSULIN LISPRO 100 UNITS/ML SUBCUT SCH ×4 (06:58→20:54)
[2017-03-24 08:00] VITALS: BP 158/54
[2017-03-24] MEDS: CLOPIDOGREL 75MG TABLET PO SCH (08:59)
[2017-03-24] MEDS: DOCUSATE SODIUM 100MG CAPSULE PO SCH (08:59)
[2017-03-24] MEDS: ENOXAPARIN 30MG/0.3ML SYR SUBCUT SCH (08:59)
[2017-03-24] MEDS: ASPIRIN 81MG TABLET PO SCH (08:59)
[2017-03-24] MEDS: AMLODIPINE 2.5MG TABLET PO SCH ×2 (08:59→20:54)
[2017-03-24 09:00] VITALS: BP_SYST 109; BP_SYST 112; BP_SYST 124; BP_DIAS 46; BP_DIAS 52; BP_DIAS 58
[2017-03-24 20:00] VITALS: BP_SYST 120; BP_SYST 122; BP_SYST 128; BP_DIAS 58; BP_DIAS 62
[2017-03-25] MEDS: INSULIN LISPRO 100 UNITS/ML SUBCUT SCH ×4 (07:01→21:00)
[2017-03-25] MEDS: BLOOD SUGAR DIAGNOSTIC STRIP TEST SCH ×4 (07:03→21:00)
[2017-03-25 07:12] LABS: BASOPHILS % 1.3 % (0.0-2.0); EOSINOPHILS % 5.4 % (0.0-5.0); HEMATOCRIT. 32.6 % (36.0-48.0); LYMPHOCYTES % 46.1 % (20.0-50.0); MEAN CORPUSCULAR HEMOGLOBIN 30.8 pg (28.0-32.0); MEAN CORPUSCULAR VOLUME 91.2 fL (81.0-99.0); MEAN PLATELET VOLUME 8.6 fl (7.4-10.4); MONOCYTES % 12.8 % (2.0-8.0); NEUTROPHILS % 34.4 % (40.0-76.0); PLATELET 374 x1000/uL (130-400); RED BLOOD CELL COUNT 3.57 mill/uL (4.2-5.4); RED CELL DISTRIBUTION WIDTH 14.3 % (11.6-14.6)
[2017-03-25 07:58] LABS: CHLORIDE 108 mEq/L (98-107)
[2017-03-25 08:00] VITALS: BP 138/47
[2017-03-25 08:05] LABS: CARBON DIOXIDE 25 mEq/L (21-32)
[2017-03-25] MEDS: DOCUSATE SODIUM 100MG CAPSULE PO SCH (08:58)
[2017-03-25] MEDS: CLOPIDOGREL 75MG TABLET PO SCH (08:58)
[2017-03-25] MEDS: ASPIRIN 81MG TABLET PO SCH (08:58)
[2017-03-25] MEDS: ENOXAPARIN 30MG/0.3ML SYR SUBCUT SCH (08:59)
[2017-03-25] MEDS ORDERED: ENOXAPARIN 30MG/0.3ML SYR SUBCUT SCH (09:00)
[2017-03-25 09:11] VITALS: BP_SYST 124; BP_SYST 136; BP_SYST 138; BP_DIAS 45; BP_DIAS 51; BP_DIAS 54
[2017-03-25] MEDS: AMLODIPINE 2.5MG TABLET PO SCH (09:19)
[2017-03-25] MEDS ORDERED: AMLO2.5T45 PO (11:22)
[2017-03-25 20:00] VITALS: BP 114/38
[2017-03-25 21:00] VITALS: BP 124/60
[2017-03-26] MEDS: BLOOD SUGAR DIAGNOSTIC STRIP TEST SCH ×2 (07:03→11:15)
[2017-03-26] MEDS: INSULIN LISPRO 100 UNITS/ML SUBCUT SCH ×2 (07:03→13:00)
[2017-03-26 08:00] VITALS: BP 119/44
[2017-03-26] MEDS: DOCUSATE SODIUM 100MG CAPSULE PO SCH (08:28)
[2017-03-26] MEDS: ASPIRIN 81MG TABLET PO SCH (08:28)
[2017-03-26] MEDS: CLOPIDOGREL 75MG TABLET PO SCH (08:28)
[2017-03-26] MEDS: ENOXAPARIN 30MG/0.3ML SYR SUBCUT SCH (08:30)
[2017-03-26] MEDS ORDERED: AMLODIPINE 2.5MG TABLET PO SCH (09:00)
[2017-03-26 15:32] VITALS: BP 119/44
== END 2017-03-26 21:09 | disposition home health service (06) | DRG 299 ==
PROVIDERS: ADMIT Psychiatry & Neurology Neurology; ATTEND Internal Medicine Critical Care Medicine
DX: E11.51 Type 2 diabetes mellitus with diabetic peripheral angiopathy without gangrene (principal); A41.51 Sepsis due to Escherichia coli [E. coli]; N13.0 Hydronephrosis with ureteropelvic junction obstruction; K56.7 Ileus, unspecified; I11.0 Hypertensive heart disease with heart failure; I50.30 Unspecified diastolic (congestive) heart failure; N13.30 Unspecified hydronephrosis; N39.0 Urinary tract infection, site not specified; R53.81 Other malaise; E86.0 Dehydration; K57.90 Diverticulosis of intestine, part unspecified, without perforation or abscess without bleeding; J45.909 Unspecified asthma, uncomplicated; K21.9 Gastro-esophageal reflux disease without esophagitis; I35.2 Nonrheumatic aortic (valve) stenosis with insufficiency; I25.10 Atherosclerotic heart disease of native coronary artery without angina pectoris; I95.1 Orthostatic hypotension; F32.9 Major depressive disorder, single episode, unspecified; I35.0 Nonrheumatic aortic (valve) stenosis; F03.90 Unspecified dementia, unspecified severity, without behavioral disturbance, psychotic disturbance, mood disturbance, and anxiety; E78.5 Hyperlipidemia, unspecified; D63.8 Anemia in other chronic diseases classified elsewhere; B96.1 Klebsiella pneumoniae [K. pneumoniae] as the cause of diseases classified elsewhere; Z79.84 Long term (current) use of oral hypoglycemic drugs; Z82.49 Family history of ischemic heart disease and other diseases of the circulatory system; Z90.710 Acquired absence of both cervix and uterus; I25.2 Old myocardial infarction; Z79.899 Other long term (current) drug therapy; Z79.82 Long term (current) use of aspirin; Z95.5 Presence of coronary angioplasty implant and graft; Z87.01 Personal history of pneumonia (recurrent)
CPT/HCPCS: 36415; 70450; 71010; 74000; 80048; 81001; 82962; 85025; 87077; 87086; 87186; 97110; 97116; 97162; 97166; 97530; 97535; C1893; J1650; J1815